=== PATIENT | female | born 1985 | race African-American/Black ===

== ENCOUNTER 2024-08-23 17:32 | Emergency (ER) | payer MEDICAID, SELFPAY ==
[2024-08-23 17:43] VITALS: BP 171/123
[2024-08-23 18:09] LABS: % Basophils 0.4 % (0-2); % Immature Granulocytes 0.4 % (0-0.5); % Lymphocytes 20.2 % (20.5-51.1); % Monocytes 9.6 % (1.7-9.3); % Neutrophils 69.4 % (42.2-75.2); Absolute Lymphocytes 1.1 10^3/uL (1.2-3.4); Absolute Monocytes 0.5 10^3/uL (0.1-0.6); Absolute Neutrophils 3.9 10^3/uL (1.4-6.5); Hematocrit 34.1 % (37.0-47.0); Hemoglobin 11.9 g/dL (12.0-16.0); Mean Corp Hgb Conc. 34.9 g/dL (33.0-37.0); Mean Corpuscular Hgb 28.1 pg (27.0-31.0); Mean Corpuscular Volume 80.4 fL (81.0-99.0); Mean Platelet Volume 11.1 fL (7.4-10.4); Nucleated Red Blood Cells % 0 %; Platelet Count 190 10^3/uL (130-400); Red Blood Cell Count 4.24 10^6/uL (4.20-5.40); Red Cell Dist. Width 13.2 % (11.5-14.5); White Blood Cell Count 5.5 10^3/uL (4.8-10.8)
[2024-08-23 18:25] LABS: COVID-19 Antigen Positive (Negative)
[2024-08-23 18:35] LABS: ALT (SGPT) 23 U/L (0-35); AST (SGOT) 25 U/L (14-36); Albumin 4.6 g/dl (3.5-5.0); Alkaline Phosphatase 67 U/L (38-126); Blood Urea Nitrogen 14 mg/dl (7-17); Calcium 9.6 mg/dl (8.4-10.2); Carbon Dioxide 22 mmol/L (22-30); Chloride 98 mmol/L (98-107); Glucose 114 mg/dl (70-99); Potassium 3.8 mmol/L (3.5-5.1); Sodium 133 mmol/L (135-145); Total Bilirubin 0.5 mg/dl (0.2-1.3); Total Protein 7.8 g/dl (6.3-8.2); eGFR > 60.00
[2024-08-23 18:40] LABS: HCG, Serum Qualitative Screen Negative
--- NOTE | 2024-08-23 19:26 | ED.GENMED ---
History of Present Illness
General
Chief Complaint: Blood Pressure Problem
Source: patient
Exam Limitations: none
Time Seen by Provider: 08/23/24 19:07
Nursing documentation reviewed up to this point in time: agreed with
History of Present Illness
History of Present Illness:
Patient to ED with complaint of headache, leg pain, elevated BP. States she was seen by PCP 2 weeks ago and was told BP was elevated. SHe has been keeping a diary but BP was more elevated today. Reports headache and leg pain started on Thursday.
Brought self to ED for eval.
Past History
Past History
ED Past Medical History: None
Review of Systems
Review of Systems
Allergies reviewed?: Yes
All Other Systems: ROS reviewed and negative except as documented in HPI and ROS
Constitutional: Reports fatigue
EENT: Reports no symptoms
Respiratory: Reports no symptoms
Cardiac: Reports no symptoms
ABD/GI: Reports no symptoms
Musculoskeletal: Reports other (bilateral leg pain)
Skin: Reports no symptoms
Neurological: Reports headache
Psychiatric: Reports no symptoms
Phy Exam
General Physical Exam
General Presentation: moderate distress
General age: appears stated age
General Skin: warm and dry
General Habitus: normal
General Mental: alert
General Hydration: appears well hydrated
Cardiovascular Exam
Cardiovascular Exam: regular rate/rhythm and no edema
Pulmonary Exam
Pulmonary Exam: no respiratory distress and chest non tender
Neurological Exam
Neurological Exam: alert, oriented x3, CN II-XII intact, no motor deficits, no sensory deficits and speech normal
Musculoskeletal Exam
Musculoskeletal Exam: full ROM, neuro vasc intact and other (no neck pain)
Skin Exam
Skin Exam: normal color
Psychiatric Exam
Psychiatric Exam: normal mood/affect
Course
Orders/Labs/Results
Orders:
Orders
08/23/24 17:50
Electrocardiogram (*1) Urgent
Reason for Study: Other
Other Reason for Exam: Possible Sepsis
EKG- Treatment ONCE
Straight cath- Treatment ONCE
Test Result ONCE
08/23/24 17:59
COVID-19 Antigen Urgent
Source: Nasal Swab
Complete Blood Count/With Diff Urgent
Comprehensive Metabolic Panel Urgent
HCG, Serum Qualitative Screen Urgent
Comment: Notify provider if positive test present
Influenza A+B Rapid Molecular Urgent
ELIAZAR Source: Nasal Swab
Specimen Description:
08/23/24 19:25
0.9% Sodium Chloride 1000 ml [Nss] 1,000 ml IV BOLUS
Ketorolac [Toradol] 30 mg IV NOW STA
Abnormal Lab Results
08/23/24
17:59
Hgb 11.9 L g/dL
(12.0-16.0)
Hct 34.1 L %
(37.0-47.0)
MCV 80.4 L fL
(81.0-99.0)
MPV 11.1 H fL
(7.4-10.4)
Absolute Lymphs (auto) 1.1 L 10^3/uL
(1.2-3.4)
Lymphocytes % 20.2 L %
(20.5-51.1)
Monocytes % 9.6 H %
(1.7-9.3)
Sodium 133 L mmol/L
(135-145)
Glucose 114 H mg/dl
(70-99)
SARS-CoV-2 Antigen Positive A
(Negative)
08/23/24 17:59
08/23/24 17:59
Vital Signs
Initial and Last Documented VS:
Initial Vital Signs
Temp Pulse Resp BP Pulse Ox
100.1 F 93 16 171/123 100
08/23/24 17:43 08/23/24 17:43 08/23/24 17:43 08/23/24 17:43 08/23/24 17:43
Last Documented Vital Signs
Temp Pulse Resp BP Pulse Ox
99.1 F 87 18 155/98 97
08/23/24 21:16 08/23/24 21:16 08/23/24 21:16 08/23/24 21:16 08/23/24 21:16
*Pulse Oximetry
Patient hypoxic: no
*Critical Care Note
Total Time (30-74mins, 75-104mins- exclusive of procedures): Not Applicable
Update Note
Update Note:
Patient to ED with compalint of headache, flu like symptoms. Influenza A pos. Given IVF, toradol with relief of headache. Also concerned for elevated BP readings. BP responding to fluids, pain meds. Will be able to dishcarge home tonight, close
follow up with PCP who is also monitoring her BP. Given instructions on s/s to return to ED and she is agreeable to plan
ED Attending Note
-
Portions of this chart may have been created with voice recognition software.� Occasional wrong word or��sound alike� substitutions may have occurred due to the inherent limitations of voice recognition software.
Discharge Plan
Departure
Patient Disposition: Home (Routine Discharge)
Date of Disposition: 08/23/24
Time of Disposition: 21:18
Patient with high blood pressure during this ER visit?: No
Condition: Good
Covid-19: Not Applicable
Discharge Problem:
COVID-19, Elevated blood pressure reading
Instructions: High Blood Pressure (DC), COVID-19 - ED discharge instructions
Referrals:
Paty Monteiro MD [Family Provider] - Keep scheduled appt
Stand Alone Forms: Return to Work
Interventions
Interventions:
*Risk Screen - Suicide Last Done: 08/23/24 17:49
*General Assessment Last Done: 08/23/24 21:27
*Neglect/Abuse Screening Last Done: 08/23/24 17:49
*ED- Fall Risk Assessment Last Done: 08/23/24 19:34
*Nursing Disposition Last Done: 08/23/24 21:27
ED- Cardiac Assessment Last Done: 08/23/24 19:32
ED- Neurological Assessment Last Done: 08/23/24 19:32
ED- Pulmonary Assessment Last Done: 08/23/24 19:32
Discharge Date and Time
Discharge Date/Time: 08/23/24 21:27
Print Language: PANAMANIAN
[2024-08-23 19:48] VITALS: BP 172/102
[2024-08-23] MEDS: TORADOL 30 MG IV (19:59)
[2024-08-23] MEDS: NSS 1000 IV (20:00)
[2024-08-23 20:22] VITALS: BP 155/98
[2024-08-23 21:16] VITALS: BP 155/98
== END 2024-08-23 21:27 | disposition home or self-care (01) ==
LOC: EMR 17:32
PROVIDERS: Emergency Medicine; EMERGENCY PHYSICIAN Emergency Medicine; FAMILY PHYSICIAN Internal Medicine
DX: U07.1 COVID-19 (principal); R03.0 Elevated blood-pressure reading, without diagnosis of hypertension
CPT/HCPCS: 96374; 96361; 99284; 80053; 84703; 85025; 87502; 87811; 93005